=== PATIENT | male | born 1950 | race Caucasian/White ===

== ENCOUNTER 2024-04-23 18:02 | Emergency (ER) | payer MEDICARE, OTHER, SELFPAY ==
[2024-04-23 18:04] VITALS: BP 165/100
[2024-04-23 18:35] VITALS: BP 181/100
[2024-04-23 18:40] VITALS: BP 155/87
[2024-04-23 19:00] VITALS: BP 137/83
--- NOTE | 2024-04-23 19:01 | ED.GENMED ---
History of Present Illness
General
Chief Complaint: Heart Rate Problem
Source: patient
Time Seen by Provider: 04/23/24 18:39
History of Present Illness
History of Present Illness:
74-year-old male presents to the emergency room complaining of palpitations and some mild discomfort in his neck. Symptoms began this afternoon. They are gone now. He felt as if his heart was beating strongly somewhat rapidly than normal.
Patient denies any fever, chills, cough. He denies any recent travel or periods of immobilization.
Past History
Past History
ED Past Medical History: HTN and Other (Arthritis, anxiety and depression, Atrial fib, High Cholesteral,)
ED Past Surgical History: Other (Hernia)
Social History
Tobacco: Non-smoker
Alcohol: None
Personal:
Living: with family
Employment: Not employed
Phy Exam
Physical Exam
Physical Exam:
General: Awake, Alert, Oriented X3. No acute distress.
Vitals: Mildly tachycardic
Head: Atraumatic
Eyes: Pupils equal, EOMI
Throat: Airway intact, no exudates
Neck: Trachea midline
Lungs: Clear and equal b/l
Heart: Regular rate, no murmurs
Abd: Soft, Nontender, No pulsatile mass
Neuro: Nonfocal
Skin: Warm, dry, no rash
Extremities: pulses equal b/l, no edema
Course
Orders/Labs/Results
Orders:
Orders
04/23/24 18:03
Electrocardiogram (*1) Urgent
Reason for Study: Chest Pain
EKG- Treatment ONCE
04/23/24 18:08
Electrocardiogram (*1) Urgent
Reason for Study: Palpitations
EKG- Treatment ONCE
04/23/24 19:00
0.9% Sodium Chloride 500 ml [Nss] 500 ml IV BOLUS
CR Chest - 2 Views Urgent
Comment:
Reason For Exam: chest pain
04/23/24 19:21
Basic Metabolic Panel Urgent
Complete Blood Count/With Diff Urgent
Troponin I Urgent
Abnormal Lab Results
04/23/24
19:21
BUN 23 H mg/dl
(9-20)
Glucose 118 H mg/dl
(70-99)
04/23/24 19:21
04/23/24 19:21
Vital Signs
Initial and Last Documented VS:
Initial Vital Signs
Temp Pulse Resp BP Pulse Ox
98.2 F 122 16 165/100 97
04/23/24 18:04 04/23/24 18:04 04/23/24 18:04 04/23/24 18:04 04/23/24 18:04
Last Documented Vital Signs
Temp Pulse Resp BP Pulse Ox
98.2 F 64 14 154/84 96
04/23/24 18:04 04/23/24 21:08 04/23/24 21:08 04/23/24 21:08 04/23/24 21:08
MDM/Problems Addressed
Differential Diagnosis Includes:
Paroxysmal atrial fibrillation, SVT, sinus tachycardia, dehydration
MDM/Problems Addressed:
Patient had palpitations sensation his heart was beating rapidly at home. Patient has sinus rhythm here in the emergency room. He does not have atrial fibrillation on the monitor. After some fluids the patient's heart rate improved. Suspect
there is at least a component of dehydration. Patient stable for discharge home. Recommend outpatient cardiology follow-up.
Chronic conditions affecting care: HTN
*Radiology
Radiology exam reviewed: preliminary read by ED provider (No acute findings on the chest x-ray per my review)
*Pulse Oximetry
Patient hypoxic: no
*Critical Care Note
Total Time (30-74mins, 75-104mins- exclusive of procedures): Not Applicable
ED Attending Note
-
Portions of this chart may have been created with voice recognition software.� Occasional wrong word or��sound alike� substitutions may have occurred due to the inherent limitations of voice recognition software.
Discharge Plan
Departure
Patient Disposition: Home (Routine Discharge)
Date of Disposition: 04/23/24
Time of Disposition: 20:36
Patient with high blood pressure during this ER visit?: No
Condition: Good
Discharge Problem:
Palpitations, Acute dehydration
Instructions: Palpitations (DC), Dehydration, Adult ED
Prescriptions:
No Action
Losartan
1 tab PO DAILY
escitalopram oxalate 10 MG tablet
10 mg PO DAILY Qty: 30 1RF
Referrals:
Blair King MD [Family Provider] -
Donald Jonas MD [Active] -
Interventions
Interventions:
*Risk Screen - Suicide Last Done: 04/23/24 19:20
*General Assessment Last Done: 04/23/24 19:15
*Neglect/Abuse Screening Last Done: 04/23/24 19:15
ED- Fall Risk Assessment Last Done: 04/23/24 19:15
*ED COVID-19 Vaccine History Last Done: 04/23/24 19:15
*Nursing Disposition Last Done: 04/23/24 21:10
ED- Cardiac Assessment Last Done: 04/23/24 19:15
ED- Pulmonary Assessment Last Done: 04/23/24 19:15
Discharge Date and Time
Discharge Date/Time: 04/23/24 21:11
Print Language: ETHIOPIAN
[2024-04-23 19:15] VITALS: BMI 26.0
[2024-04-23] MEDS: NSS 500 IV (19:21)
[2024-04-23 19:30] LABS: % Basophils 0.5 % (0-2); % Immature Granulocytes 0.3 % (0-0.5); % Lymphocytes 35.3 % (20.5-51.1); % Monocytes 7.9 % (1.7-9.3); Absolute Eosinophils 0.1 10^3/uL (0-0.7); Absolute Lymphocytes 2.1 10^3/uL (1.2-3.4); Absolute Monocytes 0.5 10^3/uL (0.1-0.6); Absolute Neutrophils 3.3 10^3/uL (1.4-6.5); Hematocrit 48.1 % (39.0-52.0); Hemoglobin 16.5 g/dL (13.0-18.0); Mean Corp Hgb Conc. 34.3 g/dL (33.0-37.0); Mean Corpuscular Hgb 30.1 pg (27.0-31.0); Mean Corpuscular Volume 87.6 fL (80.0-94.0); Mean Platelet Volume 9.2 fL (7.4-10.4); Nucleated Red Blood Cells % 0 % (-); Platelet Count 251 10^3/uL (130-400); Red Blood Cell Count 5.49 10^6/uL (4.70-6.10); Red Cell Dist. Width 13.2 % (11.5-14.5); White Blood Cell Count 6.1 10^3/uL (4.8-10.8)
[2024-04-23 19:45] LABS: Blood Urea Nitrogen 23 mg/dl (9-20); Calcium 9.3 mg/dl (8.4-10.2); Carbon Dioxide 26 mmol/L (22-30); Chloride 102 mmol/L (98-107); Estimated Creatinine Clearance 74 ml/min; Glucose 118 mg/dl (70-99); Potassium 4.1 mmol/L (3.5-5.1); Sodium 142 mmol/L (135-145); eGFR > 60.00
[2024-04-23 19:57] LABS: Troponin I < 0.012 ng/ml
[2024-04-23 20:00] VITALS: BP 141/75
[2024-04-23 21:08] VITALS: BP 154/84
== END 2024-04-23 21:11 | disposition home or self-care (01) ==
LOC: EMR 18:02
PROVIDERS: EMERGENCY PHYSICIAN Emergency Medicine; FAMILY PHYSICIAN Family Medicine
DX: E86.0 Dehydration (principal); R00.2 Palpitations; I10 Essential (primary) hypertension
CPT/HCPCS: 99285; 96360; 71046; 80048; 84484; 85025; 93005

== ENCOUNTER → 2024-05-14 10:27 | Outpatient (REF) | payer MEDICARE, OTHER, SELFPAY | LOC: RCS 10:27 | PROVIDERS: ATTENDING PHYSICIAN Internal Medicine Cardiovascular Disease; FAMILY PHYSICIAN Family Medicine | DX: R00.2 Palpitations (principal); I48.91 Unspecified atrial fibrillation; I10 Essential (primary) hypertension; R94.39 Abnormal result of other cardiovascular function study; Z79.899 Other long term (current) drug therapy | CPT/HCPCS: 93017; 93350 ==

== ENCOUNTER → 2024-07-20 10:08 | Outpatient (REF) | payer MEDICARE, OTHER, SELFPAY | LOC: CLAB 10:08 | PROVIDERS: ATTENDING PHYSICIAN Specialist | DX: R97.20 Elevated prostate specific antigen [PSA] (principal) | CPT/HCPCS: 88305; 88344 ==

== ENCOUNTER → 2024-07-30 09:37 | Outpatient (REF) | payer MEDICARE, OTHER, SELFPAY | LOC: HWRAD 09:37 | PROVIDERS: ATTENDING PHYSICIAN Family Medicine | DX: R07.9 Chest pain, unspecified (principal); M25.512 Pain in left shoulder | CPT/HCPCS: 71046; 73030 ==

== ENCOUNTER → 2024-08-17 14:16 | Outpatient (REF) | payer MEDICARE, OTHER, SELFPAY | LOC: RAD 14:16 | PROVIDERS: ATTENDING PHYSICIAN Family Medicine | DX: R05.3 Chronic cough (principal); R07.9 Chest pain, unspecified; C61 Malignant neoplasm of prostate | CPT/HCPCS: 71260; Q9967 ==